=== PATIENT | male | born 1970 | race Caucasian/White ===

== ENCOUNTER 2019-03-22 22:32 | Emergency (ER) | payer BC ==
[2019-03-22 22:41] VITALS: BP 134/79; PULSE 82; RESP 16; TEMP 97.8
--- NOTE | 2019-03-22 23:03 | ED ---
General Adult HPI - General Chief complaint: Skin/Abscess/Foreign Body Stated complaint: Bee sting Time Seen by Provider: 03/22/19 22:49 Source: patient Mode of arrival: ambulatory Limitations: no limitations - History of Present Illness Initial comments: Patient is a 48-year-old male presents emergency Department after multiple bee stings. Patient reports incident occurred at 1999. Patient reports multiple bee stings on the lateral hands. Patient reports taking Benadryl and ibuprofen. Patient denies anaphylactic reaction to the sting. Patient denies trouble breathing or pharyngeal swelling. Patient reports she is concerned about the swelling on his left ring finger. Patient is requesting to have his ring removed. - Related Data Previous Rx's Medication Instructions Recorded Cephalexin [Keflex] 500 mg PO Q6HR #40 cap 03/22/19 Allergies Allergy/AdvReac Type Severity Reaction Status Date / Time Penicillins Allergy Unknown Verified 03/22/19 22:57 Review of Systems ROS Statement: Those systems with pertinent positive or pertinent negative responses have been documented in the HPI. ROS Other: All systems not noted in ROS Statement are negative. Past Medical History Past Medical History: No Reported History History of Any Multi-Drug Resistant Organisms: None Reported Past Surgical History: No Surgical Hx Reported Past Psychological History: No Psychological Hx Reported Smoking Status: Never smoker Past Alcohol Use History: Occasional Past Drug Use History: None Reported General Exam - General Exam Comments Initial Comments: General: Well-developed well-nourished distress HEENT: Normocephalic/atraumatic, PERLL, pharynx erythema, swallowing well, EAC no erythema, no exudates, TM clear, no cervical lymph nodes Neck: Supple, nontender, trachea midline Chest/Lungs: Normal respirations, no signs of respiratory distress clear to auscultation bilaterally no wheezes, rales, rhonchi Cardiac: Regular rate and rhythm, normal S1-S2, no murmurs rubs or gallops Abdomen/GI: Soft nontender, bowel sounds equal or quadrant x4, no guarding, no rebound no CVA tenderness Musculoskeletal: Multiple bee stings on bilateral hands, swelling on left fourth finger, ring unable to remove on the left fourth digit due to swelling Skin: Warmth, no rashes or lesions, no cyanosis or diaphoresis Neurologic: AAO x 3, CN 2-12 intact, Psychiatric: Mood and affect normal, judgment normal Limitations: no limitations Course Vital Signs 03/22/19 22:37 Temperature 97.8 F Pulse Rate 82 Respiratory 16 Rate Blood Pressure 134/79 O2 Sat by Pulse 96 Oximetry Procedures - Procedures Initial comment: Riding was removed from left fourth digit using Raptor sandi, no local anesthesia, patient tolerated procedure well. Medical Decision Making - Medical Decision Making Patient is a 40-year-old male presents emergency department after multiple bee stings. Patient was requesting to have his ring removed from the left fourth digit due to swelling. The ring was removed patient tolerated the procedure well. Patient is requesting Keflex because he typically develops cellulitis after bee stings. Patient will be discharged with a tender course of Keflex. Patient advised to follow with primary care. Strict return parameters were thoroughly discussed the patient was understanding and agreeable. Case discussed with physician. Disposition Clinical Impression: Swelling of left ring finger Disposition: HOME SELF-CARE Condition: Stable Additional Instructions: Please return to emergency department if symptoms worsen. Prescriptions: Cephalexin [Keflex] 500 mg PO Q6HR #40 cap Is patient prescribed a controlled substance at d/c from ED?: No Referrals: Samuel Lora MD [Primary Care Provider] - 1-2 days Time of Disposition: 23:03
== END 2019-03-22 23:29 | disposition home or self-care (01) ==
LOC: EC 22:32
DX: T63.441A Toxic effect of venom of bees, accidental (unintentional), initial encounter (principal); M79.89 Other specified soft tissue disorders; Z88.0 Allergy status to penicillin
CPT/HCPCS: 99283